=== PATIENT | female | born 1990 | race Hispanic/Latino ===

== ENCOUNTER → 2024-06-01 | Outpatient (REF) | payer OTHER ==
[~2024-06-01] MED LIST: GADOBENATE DIMEGLUMINE 1 ML IV ONE; MIDAZOLAM HCL 2 MG/2 ML VIAL ONE
== END ==
LOC: MRI 12:53
PROVIDERS: ATTEND Internal Medicine
DX: E22.1 Hyperprolactinemia (principal); N91.2 Amenorrhea, unspecified; E66.01 Morbid (severe) obesity due to excess calories
CPT/HCPCS: 36415; 70553; 84702; A9577; J2250